=== PATIENT | male | born 1965 | race Caucasian/White ===

== ENCOUNTER 2020-12-04 13:46 | Outpatient (CLI) | payer BC, SELFPAY ==
--- NOTE | 2020-12-04 14:07 | ECHO_ITS ---
Patient Info Name: Mahesh Appiah Age: 55 years : 1965 Gender: Male Ht: 67 in Wt: 170 lbs BSA: 1.92 m2 HR: 57 bpm BP: 151 / 91 mmHg Technical Quality: Good Exam Date: 12/04/2020 2:20 PM Exam Location: [facility] Pulmonary Patient Status: Outpatient Admit Date: 12/04/2020 Staff Ordering Physician: Devang Jordan DO Varitypist: Ema Hurst RDCS Attending Provider: Devang Jordan DO Referring Physician: Nikki MARKS; Exam Type: CA echo doppler color flow Study Info Indications - murmur Complete two-dimensional, color flow and Doppler transthoracic echocardiogram is performed. Summary 1. Complete two-dimensional, color flow and Doppler transthoracic echocardiogram is performed. 2. Left ventricular chamber dimension is normal. 3. Left ventricular systolic function is normal, estimated at 60-65%. 4. The left ventricular diastolic function is normal. 5. E/e' 8 is minimally elevated. 6. There is trace mitral valve regurgitation. 7. There is trace tricuspid valve regurgitation. 8. No pulmonary hypertension, estimated pulmonary arterial systolic pressure is 25 mmHg. Left Ventricle E/e' 8 is minimally elevated. Left ventricular chamber dimension is normal. Left ventricular systolic function is normal, estimated at 60-65%. The left ventricular diastolic function is normal. Right Ventricle Right ventricular chamber dimension is normal. Right ventricular systolic function is normal. Left Atria Left atrial chamber dimension is normal. Right Atria Right atrial chamber dimension is normal. Aortic Valve The aortic valve is trileaflet. There is no aortic valve stenosis. There is no aortic valve regurgitation. Pulmonic Valve There is no pulmonic regurgitation. Mitral Valve There is no mitral valve stenosis. There is trace mitral valve regurgitation. Tricuspid Valve There is trace tricuspid valve regurgitation. No pulmonary hypertension, estimated pulmonary arterial systolic pressure is 25 mmHg. Pericardium/Pleural There is no pericardial effusion. Inferior Vena Cava Normal inferior vena cava with >50% collapse upon inspiration consistent with normal right atrial pressure, 5 mmHg. Aorta The aortic root size at the sinus of Valsalva is normal. Left Ventricular Outflow Tract Name Value Normal LVOT 2D LVOT Diameter 2.0 cm LVOT Doppler LVOT Peak Gradient 4 mmHg LVOT Mean Gradient 2 mmHg LVOT VTI 22 cm LVOT VTI/AV VTI Ratio 0.7 LVOT Stroke Volume 70 ml LVOT CO 13.1 l/min LVOT CI 6.8 l/min/m2 Pulmonic Valve Name Value Normal PV Doppler PV Peak Gradient 6 mmHg Mitral Valve ---
== END 2020-12-04 13:47 | disposition home or self-care (01) ==
PROVIDERS: PCP Internal Medicine; Visit Provider Internal Medicine
DX: Z00.00 Encounter for general adult medical examination without abnormal findings (principal); R01.1 Cardiac murmur, unspecified
CPT/HCPCS: 93306

== ENCOUNTER 2024-09-22 08:03 | Emergency (ER) | payer BC, SELFPAY ==
[2024-09-22 08:10] VITALS: BP 165/95; PULSE 60; RESP 16; TEMP 35.8; O2SAT 100
--- NOTE | 2024-09-22 08:16 | ECG_ITS ---
Test Date: 2024-09-22 08:30:24 Measurements Intervals [place] Rate: 53 P: 41 IN: 200 QRS: 19 QRSD: 94 T: 11 QT: 452 QTc: 424 Interpretive Statements SINUS BRADYCARDIA BASELINE ARTIFACT- I, II, III, AVR, AVL, AVF, V3-V6 BORDERLINE ECG No previous ECG available for comparison Electronically Signed On 09-22-2024 08:33:29 CDT by Tom Fernandez D.O.
--- NOTE | 2024-09-22 08:25 | ED_ITS ---
HPI - Dizziness General Chief Complaint: Dizziness Stated Complaint: DIZZY/WEAKNESS Time Seen by Provider: 09/22/24 08:18 Source: patient and RN notes reviewed Mode of arrival: ambulatory Limitations: no limitations History of Present Illness HPI Narrative: Patient presents today complaining of 1 week history of dizziness with room spinning, general weakness, slight headache, and slight bilateral intermittent blurred vision. Denies nausea, vomiting, ear pain or recent illness, chest pain, shortness of breath, palpitation or racing heart. No history of vertigo or migraines. Patient has tried no [id number] interventions prior to arrival. Related Data Allergies Allergy/AdvReac Type Severity Reaction Status Date / Time Penicillins Allergy Unknown rash Verified 09/22/24 08:16 [facility] Social History Social History Smoking status: Never smoker Second hand tobacco smoke exposure: No Alcohol intake: current Substance use: never Substance use type: does not use Lack of Transportation: No Lack of Food: Never True Current Housing: I Have Housing Concerned About Future Housing: No Difficulty Paying Gas/Electric Bills: No Difficulty Paying for Meds: No Currently Unemployed: No Education: High School Diploma/GED Difficulty w/ Childcare or Family Care: No Living arrangements: with family Comments At time of signature, I have reviewed and agree with nursing past medical, surgical, social and family history unless otherwise noted. Please see nursing chart for further information. There is no relevant family history pertinent to the presenting complaint Exam Narrative: GENERAL: Well-appearing, well-nourished, and in no acute distress. HEAD: Normocephalic, atraumatic. EYES: EOMI. PERRL. No nystagmus. No redness or drainage. Conjunctivae normal. ENT: Mucous membranes pink and moist. Nares clear. No rhinorrhea. TMs normal bilaterally. Throat normal. Uvula midline. NECK: Normal AROM. Supple. No lymphadenopathy. CHEST: No respiratory distress. Clear to auscultation. HEART: Regular rate and rhythm. Normal peripheral pulses.+murmur noted- baseline for patient EXTREMITIES: Normal range of motion. No edema. SKIN: Warm, dry, no rash. Capillary refill normal. Normal skin turgor. NEURO: No focal deficits. Alert and oriented x3. Gait steady. Hand tenter equal and strong. 5/5 strength in BLE. PSYCH: Normal affect. No signs of depression or anxiety. Course Course Level of Care: Express Care Visit Vital Signs Vital signs: Vital Signs Temperature 96.5 F L 09/22/24 08:10 Pulse Rate 60 09/22/24 08:10 Respiratory Rate 16 09/22/24 08:10 Blood Pressure 165/95 H 09/22/24 08:10 Pulse Oximetry 100 09/22/24 08:10 Temperature 96.5 F L 09/22/24 08:10 Pulse Rate 60 09/22/24 08:10 Respiratory Rate 16 09/22/24 08:10 Blood Pressure 165/95 H 09/22/24 08:10 Pulse Oximetry 100 09/22/24 08:10 Reviewed Transfer Transfered to: [place] Transportation: Other (private vehicle) Transfer rationale: dizziness, generalized weakness Accepting physician: Hua MDM - Dizziness MDM Narrative Medical decision making narrative: 59-year-old male patient presents today with a one-week history of dizziness and generalized weakness with slight headache and intermittent bilateral blurred vision. Denies any additional symptoms. No history of migraines or vertigo. No OTC treatment prior to arrival. EKG shows sinus bradycardia with heart rate of 53. Visual acuity: 20/40 R, 20/40 L, no correction. Exam is normal aside from known murmur. Patient will be transferred to the ER at [facility] for further evaluation of his symptoms. Vital signs stable. Differential Diagnosis Differential diagnosis: Likely benign paroxysmal positional vertigo and other (Electrolyte imbalance, dehydration, arrhythmia) ECG Data EKG #1: Attestation: I personally reviewed and interpreted this ECG as follows: ECG completion date: 09/22/24 ECG completion time: 08:30 Prior ECG tracings: not available for review Interpretation: Sinus bradycardia. Heart rate 53. MS interval 200. Critical Care Time Critical Care Time Critical Care Time: No Discharge Plan Discharge Clinical Impression: Dizziness, Generalized weakness Patient Disposition: Acute Care Hospital Condition: Stable Patient Language: Polish Prescriptions: No Action albuterol sulfate 90 mcg/actuation HFA aerosol inhaler 2 puff INHALATION Q4H PRN (Reason: shortness of breath or wheezing) Qty: 8.5 3RF amlodipine 10 mg tablet 10 mg PO DAILY Qty: 90 1RF fluticasone propion-salmeterol [Advair Diskus] 250-50 mcg/dose blister with device 1 inh INHALATION BID Qty: 60 1RF Rx Instructions: generic only please Follow-up/Referrals: Jorge Luis Zheng MD [Primary Care Provider] - Time of Disposition: 08:52
== END 2024-09-22 08:53 | disposition short-term general hospital (02) ==
PROVIDERS: Emergency Provider Nurse Practitioner; PCP Family Medicine
DX: R42 Dizziness and giddiness (principal); R53.1 Weakness
CPT/HCPCS: 93005; 99213; G0463

== ENCOUNTER 2024-09-22 09:12 | Emergency (ER) | payer BC, SELFPAY ==
--- OUTSIDE RECORDS SUMMARY | 2024-09-22 09:16 | XMS_ITS | Clinical Summary ---
Author Organization [facility] [place] 8 [facility] Address [address] [place] [address] Care Team Providers Care Provider Relations Coordinator Name Role Phone Jasbir Wilcox MD Primary Care Provider [phone] Allergies Active Allergy Reactions Criticality Noted Date Comments Penicillins Rash Medium 03/10/2018 Medications ADVAIR DISKUS 250-50 mcg/dose diskus inhaler INL 1 PUFF PO Q 12 H 0 02/02/2018 Active Active Problems No known active problems Surgical History Surgery Date Site/Laterality Comments KNEE SURGERY Medical History Medical History Date Comments Hypercholesteremia Asthma Family History * Patient is adopted Medical History Relation Name Comments No Known Problems Brother No Known Problems Daughter No Known Problems Father No Known Problems Mother No Known Problems Other No Known Problems Sister No Known Problems Son Relation Name Status Comments Brother Daughter Father Mother Other Sister Son Social History Tobacco Use Types Packs/Day Years Used Date Smoking Tobacco: Never Smokeless Tobacco: Never Alcohol Use Standard Drinks/Week Comments Yes 0 (1 standard drink = 0.6 oz pur e alcohol) Personal Safety Answer Date Recorded Getting School Help Needed Not on file 04/23 Sex and Gender Information Value Date Recorded Sex Assigned at Not on file Legal Sex Male 11:21 AM [employer] Gender Identity Not on file Sexual Orientation Not on file Obstetrics History Last Filed Vital Signs Vital Sign Reading Time Taken Comments Blood Pressure 175/90 05/14/2020 2:02 PM CDT Pulse 67 05/14/2020 2:02 PM CDT Temperature 37.3 C (99.1 F) 05/14/2020 2:02 PM CDT Respiratory Rate - - Oxygen Saturation - - Inhaled Oxygen Concentration - - Weight 84.8 kg (187 lb) 05/14/2020 2:02 PM CDT Height 170.2 cm (5' 7) 05/14/2020 2:02 PM CDT Body Mass Index 29.29 05/14/2020 2:02 PM CDT Plan of Treatment Not on file Insurance [employer] [place] Care Teams Provider Relations Coordinator Relationship Specialty Start Date End Date Jasbir Wilcox MD [address] [facility] [address] [place], [place] [id number] PCP - General Internal Medicine 03/04/18
[2024-09-22 09:29] VITALS: BP 163/93; PULSE 58; RESP 14; TEMP 36.7; O2SAT 99
--- NOTE | 2024-09-22 10:22 | ECG_ITS ---
Test Date: 2024-09-22 11:50:41 Measurements Intervals [place] Rate: 51 P: 45 DE: 217 QRS: 18 QRSD: 84 T: 15 QT: 452 QTc: 419 Interpretive Statements SINUS BRADYCARDIA WITH FIRST DEGREE AV BLOCK BASELINE ARTIFACT- I, III, V3-V5 BORDERLINE ECG Compared to ECG 09/22/2024 08:30:24 First degree AV block now present Electronically Signed On 09-22-2024 12:00:08 CDT by Tom Fernandez D.O.
[2024-09-22 10:36] LABS: Hematocrit 46.1 % (42.0-52.0); Hemoglobin 16.0 g/dL (14.0-18.0); Immature Granulocyte Percent A 0.1 % (0-0.5); Lymphocytes Absolute Auto 1.47 K/mm3 (0.9-3.2); Mean Corpuscular HGB Conc 34.7 g/dl (32-36); Mean Corpuscular Hemoglobin 30.9 pg (26-34); Mean Corpuscular Volume 89.2 fl (80-100); Nucleated Red Blood Cells Absolute Auto 0.000 K/mm3 (0.0-0.012); Nucleated Red Blood Cells Perc 0.0 % (0.0-0.2); Platelet Count Result 289 k/mm3 (150-375); Red Blood Count 5.17 M/mm3 (4.6-6.20); White Blood Count 6.7 K/mm3 (4.5-10.0)
[2024-09-22 10:54] LABS: Alanine Aminotransferase 29 U/L (6-50); Albumin Level 4.2 g/dL (3.5-5.1); Alkaline Phosphatase 103 U/L (38-126); Anion Gap 6 mmol/L (4-12); Aspartate Amino Transferase 44 U/L (17-59); Bilirubin,Total 0.7 mg/dL (0.2-1.3); Blood Urea Nitrogen 16 mg/dL (9-20); Calcium 9.3 mg/dL (8.4-10.2); Carbon Dioxide 25 mmol/L (22-30); Chloride 104 mmol/L (98-107); Estimated CRCL calculation 66 ml/min; Estimated Glomerular Filt Rate > 60; Glucose 103 mg/dL (65-110); Potassium 3.9 mmol/L (3.4-5.0); Sodium 135 mmol/L (137-145); Total Protein 7.5 g/dL (6.3-8.2)
[2024-09-22] MEDS: SCOPOLAMINE 1 MG PATCH 1 PATCH TRANSDERM (11:47)
[2024-09-22] MEDS: MECLIZINE HCL 25 MG TABLET PO (11:47)
[2024-09-22 12:02] VITALS: BP 156/79; PULSE 55; RESP 16; O2SAT 98
--- OUTSIDE RECORDS SUMMARY | 2024-09-22 12:05 | XMS_ITS | Clinical Summary ---
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
--- NOTE | 2024-09-22 12:47 | ED.GENADULT ---
HPI - General Adult General Chief complaint: Dizziness Stated complaint: dizziness Time Seen by Provider: 09/22/24 10:35 History of Present Illness HPI narrative: This is a 59-year-old male presenting with 1 week of vertigo symptoms. Patient noticed last week while he was mowing his lawn that when he turned his head in specific directions he would develop vertigo symptoms. Symptoms quickly resolved. Symptoms completely resolve in between episodes. Not associated with double vision, dysarthria dysphagia or loss of coordination. He has been able to go about his activities of daily living without much difficulty. He has never had BPPV in the past. He has no other neurologic symptoms such as weakness to any extremity or or facial droop. He does not have any hearing loss or ear pain Related Data Allergies Allergy/AdvReac Type Severity Reaction Status Date / Time Penicillins Allergy Unknown rash Verified 09/22/24 08:16 [facility] Social History Social History Smoking status: Never smoker Second hand tobacco smoke exposure: No Alcohol intake: current Substance use: never Substance use type: does not use Lack of Transportation: No Lack of Food: Never True Current Housing: I Have Housing Concerned About Future Housing: No Difficulty Paying Gas/Electric Bills: No Difficulty Paying for Meds: No Currently Unemployed: No Education: High School Diploma/GED Difficulty w/ Childcare or Family Care: No Living arrangements: with family Exam Narrative: APPEARANCE: No apparent distress. Head: atraumatic. TMs are normal bilaterally EYES: EOMI, NOSE: Atraumatic NECK: Trachea midline RESPIRATORY: No increased rate of breathing clear to auscultation CARDIOVASCULAR: RRR, ABDOMINAL: Non-distended MUSCULOSKELETAl: No obvious deformities NEURO: Alert. Cranial nerves 2-12 grossly intact. Sensation light touch, motor function cerebellar function intact for 4 extremities. Gait exam was normal. Vertigo is triggerable with the [place]-Hallpike maneuver. SKIN:: Warm, dry. Normal color PSYCHIATRIC: Normal affect Course Vital Signs Vital signs: Vital Signs Temperature 98.1 F 09/22/24 09:29 Pulse Rate 58 L 09/22/24 09:29 Respiratory Rate 14 09/22/24 09:29 Blood Pressure 163/93 H 09/22/24 09:29 Pulse Oximetry 99 09/22/24 09:29 Oxygen Delivery Room Air 09/22/24 09:29 Temperature 98.1 F 09/22/24 09:29 Pulse Rate 55 L 09/22/24 12:02 Respiratory Rate 16 09/22/24 12:02 Blood Pressure 156/79 H 09/22/24 12:02 Pulse Oximetry 98 09/22/24 12:02 Oxygen Delivery Room Air 09/22/24 09:29 Medical Decision Making MDM Narrative Medical decision making narrative: -Course: 59-year-old male presenting with a trigger a bowl episodic vertigo. Presentation consistent with BPPV. Patient given meclizine and scopolamine with improvement. He is able to ambulate with a steady gait. Patient given information on the Dariana maneuver. Patient will be given primary care follow-up. Central cause of vertigo were considered but given the lack of other neurologic symptoms, complete resolution of symptoms in between triggers and ability to ambulate make that far less likely. -DDX includes but is not limited to: BPPV, vestibular neuritis, CVA Vital Signs Vital Signs: Vital Signs Temperature 98.1 F 09/22/24 09:29 Pulse Rate 58 L 09/22/24 09:29 Respiratory Rate 14 09/22/24 09:29 Blood Pressure 163/93 H 09/22/24 09:29 Pulse Oximetry 99 09/22/24 09:29 Oxygen Delivery Room Air 09/22/24 09:29 Temperature 98.1 F 09/22/24 09:29 Pulse Rate 55 L 09/22/24 12:02 Respiratory Rate 16 09/22/24 12:02 Blood Pressure 156/79 H 09/22/24 12:02 Pulse Oximetry 98 09/22/24 12:02 Oxygen Delivery Room Air 09/22/24 09:29 Lab Data 09/22/24 10:29 09/22/24 10:29 Labs: Lab Results 09/22/24 Range/Units 10:29 WBC 6.7 (4.5-10.0) K/mm3 RBC 5.17 (4.6-6.20) M/mm3 Hgb 16.0 (14.0-18.0) g/dL Hct 46.1 (42.0-52.0) % MCV 89.2 (80-100) fl MCH 30.9 (26-34) pg MCHC 34.7 (32-36) g/dl RDW 13.5 (11.5-14.5) % Plt Count 289 (150-375) k/mm3 MPV 8.7 (7.4-10.4) fl Immature Gran % (Auto) 0.1 (0-0.5) % Neut % (Auto) 66.1 (45.5-73.1) % Lymph % (Auto) 21.8 (18.3-44.2) % Ashley % (Auto) 7.3 (2.6-8.5) % Eos % (Auto) 4.0 (0-4.4) % Baso % (Auto) 0.7 (0.2-1.2) % Lymph # (Auto) 1.47 (0.9-3.2) K/mm3 Ashley # (Auto) 0.5 (0.1-0.6) K/mm3 Eos # (Auto) 0.3 (0-0.3) K/mm3 Baso # (Auto) 0.1 (0.0-0.1) K/mm3 Abs Immat Gran (auto) 0.01 (0.00-0.031) K/mm3 Absolute Neuts (auto) 4.4 (1.3-6.7) K/mm3 Absolute Nucleated RBC 0.000 (0.0-0.012) K/mm3 Nucleated RBC % 0.0 (0.0-0.2) % Sodium 135 L (137-145) mmol/L Potassium 3.9 (3.4-5.0) mmol/L Chloride 104 (98-107) mmol/L Carbon Dioxide 25 (22-30) mmol/L Anion Gap 6 (4-12) mmol/L BUN 16 (9-20) mg/dL Creatinine 0.99 (0.7-1.3) mg/dL Estim Creat Clear Calc 66 ml/min Estimated GFR > 60 (59 - ) Glucose 103 (65-110) mg/dL Calcium 9.3 (8.4-10.2) mg/dL Total Bilirubin 0.7 (0.2-1.3) mg/dL AST 44 (17-59) U/L ALT 29 (6-50) U/L Alkaline Phosphatase 103 (38-126) U/L Total Protein 7.5 (6.3-8.2) g/dL Albumin 4.2 (3.5-5.1) g/dL Discharge Plan Discharge Clinical Impression: Vertigo Patient Disposition: Home Condition: Stable Instructions: Antibiotic Form, Benign Paroxysmal Positional Vertigo (ED) Additional Instructions: You were seen in the emergency department for benign paroxysmal positional vertigo. Please take the meclizine and scopolamine as needed. Please follow-up with your primary care physician for further management. If you develop slurred speech, double vision or weakness in any extremity, or persistent vertigo please return to the ED for re-evaluation. Patient Language: Vietnamese Prescriptions: New meclizine 25 mg tablet 25 mg PO BID PRN (Reason: dizziness) Qty: 30 0RF scopolamine base 1 mg over 3 days patch 3 day 1 patch transdermal Q3D PRN (Reason: vertigo) Qty: 4 0RF No Action albuterol sulfate 90 mcg/actuation HFA aerosol inhaler 2 puff INHALATION Q4H PRN (Reason: shortness of breath or wheezing) Qty: 8.5 3RF amlodipine 10 mg tablet 10 mg PO DAILY Qty: 90 1RF fluticasone propion-salmeterol [Advair Diskus] 250-50 mcg/dose blister with device 1 inh INHALATION BID Qty: 60 1RF Rx Instructions: generic only please Follow-up/Referrals: Jorge Luis Zheng MD [Primary Care Provider] - 3 Days
== END 2024-09-22 13:15 | disposition home or self-care (01) ==
PROVIDERS: Emergency Provider Emergency Medicine; PCP Family Medicine
DX: R42 Dizziness and giddiness (principal); R00.1 Bradycardia, unspecified; I44.0 Atrioventricular block, first degree
CPT/HCPCS: 36415; 80053; 85025; 93005; 99283; A9270

== ENCOUNTER 2024-10-06 08:18 | Outpatient (RCR) | payer BC, SELFPAY ==
--- NOTE | 2024-10-06 10:03 | OPREHPOC ---
Outpatient Therapy Plan of Care This is a Multidisciplinary Plan of Care that may contain components documented by all disciplines (PT, OT, and ST.) PT Problem 1 PT Problem #1 Knowledge Deficit PT Goal 1 Goal / Goal Update Hopkins with Dariana maneuver Target Visit 4 PT Goal 2 Goal / Goal Update 1. Demonstrate negative Kaleb-Halpike bilaterally 2. Report no dizziness with head movement for 1 week Target Visit 4
--- NOTE | 2024-10-06 10:03 | PTOPEVAL1 ---
Assessment and note entered by Kel Alvarez, PT Evaluation Information Assessment Status Evaluation ICD-10 Condition Codes (PT) Dizziness and Giddiness R42,BPPV H81.12 Onset August 2024 Subjective Information Reports that when he gets dizzy spells he feels that the room is spinning around him. He feel like he has fluid in his ear with some pressure. Denies issues with turning head but gets it with looking up and down. Feels most of the issues are on his right ear. He is on blood pressure medication as well. Reports that fullness in his right ear has been his biggest concern but has been on steroids for this. Reported Pain Level Pain Score 0: Self Report Assessment PT Clinical Summary Patient demonstrated subjective positivity this date with L sided assessment. No consistent nystagmus noted. We performed Dariana maneuver to ensure no loose bodies. PAtient demonstrated understanding of assessment and had no new concerns at this time. Plan of Care Interventions Neuro Re-education PT Services Indicated Yes Treatment Frequency and 1x/week for 4 visits as needed Duration These treatments will address the objective and functional deficits as defined above. The patient will be advanced safely and appropriately in order for the patient to progress towards his/her prior level of function. Additional exercises will be introduced and as well as a comprehensive home exercise program upon discharge, if needed, ?to ensure carryover of functional gains achieved in the clinic. This treatment plan has been reviewed and agreement upon by the patient.
--- NOTE | 2025-03-21 08:52 | PTOPDC ---
Assessment and note entered by Ronna Serna, PT Evaluation Information Assessment Status Discharge ICD-10 Condition Codes (PT) Dizziness and Giddiness R42,BPPV H81.12 Onset August 2024 Subjective Information (10/06/2024) Reports that when he gets dizzy spells he feels that the room is spinning around him. He feel like he has fluid in his ear with some pressure. Denies issues with turning head but gets it with looking up and down. Feels most of the issues are on his right ear. He is on blood pressure medication as well. Reports that fullness in his right ear has been his biggest concern but has been on steroids for this. Assessment PT Clinical Summary Patient attended his evaluation, at which time a L Dariana was performed. He did not return to therapy after this. Thus patient's POC is being closed. Pt may return at any time with an updated prescription. Plan of Care PT Services Indicated no
== END 2025-01-04 23:59 | disposition home or self-care (01) ==
LOC: ANHGOSHPT 08:18
PROVIDERS: PCP Family Medicine; Visit Provider Nurse Practitioner Family
DX: H81.12 Benign paroxysmal vertigo, left ear (principal)
CPT/HCPCS: 95992; 97112; 97161